=== PATIENT | female | born 1935 | race Caucasian/White ===

== ENCOUNTER 2018-04-03 15:18 | Inpatient (IN) ==
[2018-04-03] MEDS ORDERED: DOCUSATE 100 MG CAPSULE PO PRN (16:12)
[2018-04-03] MEDS ORDERED: LIDOCAINE W/ SODIUM BICARB 0.5 ML SYR SUBD PRN (16:12)
[2018-04-03] MEDS ORDERED: ACETAMINOPHEN 325 MG TABLET PO PRN (16:12)
[2018-04-03] MEDS ORDERED: ONDANSETRON 4 MG/2 ML VIAL IVP PRN (16:12)
[2018-04-03] MEDS ORDERED: CALCIUM CARBONATE 500 MG (TUMS) CHEWABLE TABLET PO PRN (16:12)
[2018-04-03] MEDS ORDERED: HYDROcodone/IBUPROFEN 7.5 MG/200 MG TABLET PO PRN (16:12)
[2018-04-03] MEDS ORDERED: LIDOCAINE HCL 2 % 10 ML JELLY URO-JECT TOPICAL PRN (16:12)
[2018-04-03] MEDS ORDERED: Sodium Chloride 0.9% 1,000 ML PRIMARY IV SCH (16:15)
[2018-04-03 16:58] LABS: BASOPHILS # (AUTO) 0 10*3/UL; BASOPHILS % (AUTO) 0 % (0-1); EOSINOPHILS # (AUTO) 0.01 10*3/UL; EOSINOPHILS % (AUTO) 0.2 % (0-8); Hematocrit [HCT] 24.5 % (37.0-47.0); Hemoglobin [HGB] 8.5 g/dL (12.0-16.0); MEAN CORPUSCULAR HGB CONC 34.7 g/dL (33-37); MEAN PLATELET VOLUME 10.3 FL (7.4-12.2); MONOCYTES # (AUTO) 0.25 10*3/UL (0.3-0.8); MONOCYTES % (AUTO) 5.5 % (5-15); NEUTROPHILS # (AUTO) 3.68 10*3/UL; NEUTROPHILS % (AUTO) 80.7 % (50-80)
[2018-04-03 17:08] LABS: BLOOD UREA NITROGEN 21 mg/dL (7-22); SERUM ALBUMIN 3.9 g/dL (3.5-4.8)
--- NOTE | 2018-04-03 17:08 | PDOC ---
HPI - History of Present Illness History of Present Illness: This very nice 82-year-old female who fell at home and had a left hip fracture was seen in the ER in [place] and transferred here accepted the by Dr. Sd Hall for hip surgery I did speak to Dr. Hall and the family and surgery will be done on Sunday. Patient is pretty comfortable at present time and not having any complaints. She has a history of CLL that is been known and they want no treatment for it I spoke to the granddaughter this is a decision was made by the patient 2 years ago also takes Lopressor and omeprazole which I'm going to hold Past Medical History Medical History: CLL, atrial fibrillation rate controlled not on anticoagulation as per patient's wishes and choice Tobacco Use: Never Smoker In the Past 12 Months, Have Used or Abuse Any of the Following Substance: None Medication / Allergies Allergies/Adverse Reactions: Allergies 3 Allergy/AdvReac Type Severity Reaction Status Date / Time No Known Allergies Allergy Verified 04/03/18 16:07 Review of Systems - Review of Systems All Systems: Reviewed & No Additional Complaints Except as Stated - Respiratory Respiratory: DENIES: Negative System Review, Cough, Sputum, Dyspnea At Rest, Dyspnea with Exertion, Pleuritic Pain, Hemoptysis, Wheezing, Other, See HPI - Cardiovascular Cardiovascular: DENIES: Negative System Review, Chest Pain, Edema, Syncope, Palpitations, Orthopnea, Paroxysmal Nocturnal Dyspnea, Other, See HPI - Gastrointestinal Gastrointestinal / Abdominal: DENIES: Negative System Review, Nausea, Vomiting, Diarrhea, Constipation, Abdominal Pain, Bloody Stool, Poor Appetite, Heartburn, Regurgitation, Bloating, Lactose Intolerance, Melena, Bright Red Blood per Rectum, Other, See HPI - Neurological Neurologic: DENIES: Negative System Review, Headache, Numbness/Paresthesia, Tremors, Weakness, Seizures, Head Trauma, LOC, Dizziness, Confusion, Memory Loss , Difficulty Walking, Incoordination, Other, See HPI - Psychiatric Psychiatric: DENIES: Negative System Review, Anxiety, Depressed, Anhedonia, Hopelessness, Hospitalization, Panic, Sadness, Suicidality, Tearfullness, Other , See HPI Exam - Vitals Vital Signs: Vital Signs Temperature 97.9 F Temperature Source Temporal Artery Scan Pulse Rate [Pulse Oximeter] 70 Respiratory Rate 18 Blood Pressure [Right Arm] 182/97 Pulse Ox 98 Height 5 ft 3 in Weight 100 lb - General General Appearance: No Acute Distress, Cooperative - Head Head Exam: Normal Inspection, Normocephalic, Atraumatic - Neck Neck Exam: Normal Inspection, Full ROM, No Tenderness, No Lymphadenopathy, No Thyromegaly, JVP is not Raised - Respiratory Respiratory Exam: POSITIVE: Clear to Auscultation - Bilaterally, Breathing Non Labored, Normal To Percussion, Normal to Percussion and Palpation - Cardiovascular Cardiovascular Exam: POSITIVE: RRR, No Murmur, No Clicks, No Gallops, No Rubs, PMI Non-Displaced - GI/Abdominal GI/Abdominal Exam: POSITIVE: Normal Bowel Sounds, Non Tender, Non Distended, Soft, No Masses, No Hepatomegaly, No Splenomegaly, No Organomegaly - Extremities Extremities Exam: POSITIVE: No Clubbing Present, No Edema Present, No Cyanosis Present Assessment and Plan - Patient Problems (1) Hip fracture, left Current Visit: Yes Status: Acute Comment: Dr. Hall on consult defer to him for surgery most likely on Sunday he states Code(s): S72.002A - Fracture of unspecified part of neck of left femur, initial encounter for closed fracture (2) Hypokalemia Current Visit: Yes Status: Acute Comment: Replace with IV fluids check magnesium level Code(s): E87.6 - Hypokalemia (3) Atrial fibrillation Current Visit: Yes Status: Acute Comment: Rate control patient not on anticoagulation as per her wishes Code(s): I48.91 - Unspecified atrial fibrillation (4) History of chronic lymphocytic leukemia Current Visit: Yes Status: Acute Comment: Long-standing diagnoses no treatment wanted by patient Code(s): Z85.6 - Personal history of leukemia
[2018-04-03 17:14] LABS: RBC MORPHOLOGY COMMENT SEE COMMENTS (NORM); WBC MORPHOLOGY COMMENT NORMAL MORPHOLOGY (NORM)
[2018-04-03 17:15] LABS: PLATELET MORPHOLOGY COMMENT SEE COMMENTS (NORM)
[2018-04-03] MEDS ORDERED: Magnesium Sulfate 2gm (Premix) 2 GM/50 ML BAG IV ONE (17:52)
[2018-04-03] MEDS: HEPARIN 5000 UNIT/1 ML SUBCUT SCH (20:07)
[2018-04-04] MEDS: HEPARIN 5000 UNIT/1 ML SUBCUT SCH ×3 (04:20→23:43)
--- NOTE | 2018-04-04 05:18 | PDOC(PROG) ---
Interval History: Patient is doing well and some pain now she got back from her CT scan has pain nausea vomiting I told her that she will be receiving blood she agrees because her hemoglobin is 7 Objective : Data - Labs CBC and BMP: 04/04/18 05:35 04/04/18 05:35 Objective : Exam - General General Appearance: Cooperative - Respiratory Respiratory Exam: Clear to Auscultation - Bilaterally, Breathing Non Labored, Normal To Percussion, Normal to Percussion and Palpation - Cardiovascular Cardiovascular Exam: RRR, No Murmur, No Clicks, No Gallops, No Rubs, PMI Non- Displaced - GI/Abdominal GI/Abdominal Exam: Normal Bowel Sounds, Non Tender, Non Distended, Soft, No Masses, No Hepatomegaly, No Splenomegaly, No Organomegaly Assessment and Plan - Patient Problems (1) Hip fracture, left Current Visit: Yes Status: Acute Comment: Defer to Dr. Sd Hall most likely will go to surgery tomorrow pain is controlled I will stop. Vicoprofen and start Percocet we will like to avoid the NSAIDs before surgery Code(s): S72.002A - Fracture of unspecified part of neck of left femur, initial encounter for closed fracture (2) Hypokalemia Current Visit: Yes Status: Acute Comment: This is being replaced with IV fluids Code(s): E87.6 - Hypokalemia (3) Atrial fibrillation Current Visit: Yes Status: Acute Comment: Stable rate controlled Code(s): I48.91 - Unspecified atrial fibrillation (4) History of chronic lymphocytic leukemia Current Visit: Yes Status: Acute Comment: Stable untreated Code(s): Z85.6 - Personal history of leukemia (5) Hypomagnesemia Current Visit: Yes Status: Acute Comment: Replaced with 2 g repeat labs Code(s): E83.42 - Hypomagnesemia
[2018-04-04 05:47] LABS: Hematocrit [HCT] 21.1 % (37.0-47.0); Hemoglobin [HGB] 7.1 g/dL (12.0-16.0); MEAN CORPUSCULAR HEMOGLOBIN 33.5 PG (27-31); MEAN CORPUSCULAR HGB CONC 33.6 g/dL (33-37); MEAN CORPUSCULAR VOLUME 99.5 FL (81-99); MEAN PLATELET VOLUME 10.2 FL (7.4-12.2); RED BLOOD COUNT 2.12 10^6/uL (4.20-5.40)
[2018-04-04 05:54] LABS: BLOOD UREA NITROGEN 22 mg/dL (7-22); BUN/CREATININE RATIO 24.44 (6-20); SERUM ALBUMIN 3.4 g/dL (3.5-4.8)
[2018-04-04] MEDS ORDERED: Sodium Chloride 0.9% 500 ML PRIMARY IV ONE (06:54)
--- NOTE | 2018-04-04 07:36 | CONSULT ---
Consult Note - Consult Consult Date: 04/03/18 Reason for Consult: Orthopedic Consult Primary Care Provider: PRESTON MISHRA - History of Present Illness History of Present Illness: I was contacted by Dr. Samson in [place] about this patient who fractured her left hip around noon on Sunday. She slipped in the bathroom and fell. She sustained an intertrochanteric left hip fracture. She was transported to our facility for definitive care. The patient's granddaughter is the legal power of claims attorney. I have spoken with her. My plan is to fix the patient's hip on Sunday. I would like to get a CAT scan of her hip . I have clinic out of town schedule until noon on and then in [place] until 5:00 on . The patient's mental status is not great. I have spoken with her but are not sure she clearly understands everything that is going on. On exam the patient's left hip skin is intact. Very thin female. X-rays reveal a left intertrochanteric hip fracture. Impression: Left intertrochanteric hip fracture. Plan: Is to recommend fixing this on Sunday. We'll get a CAT scan on . Likely she will require some blood as well. She has a history of chronic lymphocytic anemia. Apparently she has lost about 3 pounds in the last month according to her granddaughter. I have discussed the risks at length with the granddaughter. These include but are not limited to infection, hardware failure, pain, blood clot, pulmonary embolism, wound healing problems, and even . She understands that if I do not fix the hip, that patient will not be able to get out of bed. She agrees to let me proceed on Sunday. Past Medical History Medical History: CLL, atrial fibrillation rate controlled not on anticoagulation as per patient's wishes and choice Tobacco Use: Never Smoker In the Past 12 Months, Have Used or Abuse Any of the Following Substance: None Medication / Allergies Allergies/Adverse Reactions: Allergies 3 Allergy/AdvReac Type Severity Reaction Status Date / Time No Known Allergies Allergy Verified 04/03/18 18:35 Exam - Vitals Vital Signs: Vital Signs Temperature 97.5 F Temperature Source Temporal Artery Scan Pulse Rate [Pulse Oximeter] 76 Pulse Rate [Apical] 76 Respiratory Rate 18 Blood Pressure [Right Arm] 118/75 Pulse Ox 94 Oxygen Delivery Method Room Air Height 5 ft 3 in Weight 100 lb Results - Labs CBC and BMP: 04/04/18 05:35 04/04/18 05:35
[2018-04-04] MEDS: MORPHINE SULFATE 2 MG/1 ML IVP PRN ×2 (07:49→19:17)
[2018-04-04] MEDS: METOPROLOL SUCCINATE 50 MG SR 24H TABLET PO SCH (08:50)
[2018-04-04] MEDS: HYDROcodone-APAP 7.5 MG-325 MG TABLET PO PRN ×2 (09:24→19:00)
--- NOTE | 2018-04-04 09:27 | DI ---
CT PELVIS SCAN WITHOUT IV CONTRAST, 04/04/2018 7:51 AM : Clinical History: Left hip fracture. Previous Exam: None at this facility. Scans are performed from just superior to the umbilicus to the proximal femurs without IV contrast. S agittal and coronal images are generated. Scans through the lower abdomen and pelvis show no masses or abnormal fluid collections. There is no adenopathy. The appendix is not identified with certainty but there is no inflammatory mass either in the cecum or in the right lower quadrant. The patient is status post hysterectomy and bilateral salp ingo-oophorectomy. There is a Campbell catheter in place but the bladder is still partially filled. The Campbell catheter either is clamped or may be occluded. There is considerable stool in the rectal ampull a and this patient may be developing a fecal impaction. There is severe osteoporosis. There is a grade 1 spondylolisthesis at L5-S1 with bilateral pars defec ts. Severe disc space narrowing is present at L3-4 through L5-S1. The bony pelvis including the sacru m and coccyx are intact. The right hip is normal. There is a comminuted intertrochanteric fracture of the left hip and the distal fracture fragment is displaced anteriorly and superiorly. Hemorrhage has developed in the gluteus yue, minimus, and medius muscles. READIN. Comminuted intertrochanteric fracture of the left hip with anterior and superior displacement of the distal fracture fragment. There has been hemorrhage into the left gluteus yue, medius, and mi nimus muscles. 2. The right hip and pelvis and sacrum are intact but there is severe osteoporosis. 3. The patient may be developing a fecal impaction. There is a Campbell catheter in the bladder but the bladder is partially filled and a catheter either is occluded or may have been clamped prior to this exam. 3D RENDERING OF CT SCANS OF THE LEFT HIP JOINT, 04/04/2018 7:00 AM: Clinical History: See above. Prior or Related Exam: None. The original raw data from the CT scans of this extremity are ported to the off-line [employer] work[employer]ati on for 3D rendering of the bony structures. The 3-D rendering confirms the comminuted intertrochanteric fracture of the left hip and the position of the distal femoral fracture fragment being displaced anteriorly and superiorly. This patient prob ably has significant levoscoliosis of the lumbar spine and also has extensive degenerative disc disea se from L3-4 through L5-S1. Reading: The comminuted intertrochanteric fracture of the left hip and the severe arthritic disease of the lum bar spine are confirmed on the 3-D rendered images.
--- NOTE | 2018-04-04 16:58 | ORTHO.PROG ---
Last Taken Vital Signs: Vital Signs - Last Taken Temperature 98.6 F 04/04/18 16:06 Pulse Rate 71 04/04/18 16:06 Respiratory Rate 16 04/04/18 16:06 Blood Pressure 192/96 04/04/18 16:06 Pulse Ox 98 04/04/18 16:06 Subjective: Spoke with the patient and her daughter this afternoon. Patient was lying in bed and seemed much more alert today. Objective: Vital signs show elevated blood pressure. Patient is afebrile. Left lower extremity is in Doe's traction. Lateral skin intact. CAT scan reveals a base of the neck/intertrochanteric hip fracture. Assessment: Impression: Intertrochanteric hip fracture left. Plan: Plan: Is to IM hip screw versus dynamic hip screw scheduled for tomorrow. Patient's hemoglobin and hematocrit was 7 and 21 today. She will be given 2 units of blood and recheck her CBC in the morning. I discussed the risks benefits and alternatives to surgery with both patient and her granddaughter today. Granddaughter has legal power of senior trial attorney who will sign the consent form. These risks include but are not limited to infection, hardware failure, hardware cutting out of bone, blood clot, respiratory difficulty, bleeding, need for transfusion, pain, prolonged rehabilitation, and even . They agree to let me proceed.
[2018-04-04] MEDS ORDERED: CloNIDine Tab 0.1 MG TABLET PO ONE (17:56)
[2018-04-04 18:56] LABS: Hematocrit [HCT] 29.1 % (37.0-47.0); Hemoglobin [HGB] 9.9 g/dL (12.0-16.0); MEAN CORPUSCULAR HEMOGLOBIN 32.5 PG (27-31); MEAN CORPUSCULAR VOLUME 95.4 FL (81-99); MEAN PLATELET VOLUME 9.5 FL (7.4-12.2); RED BLOOD COUNT 3.05 10^6/uL (4.20-5.40)
[2018-04-04] MEDS: ENALAPRILAT DIHYDRATE 1.25 MG/1 ML VIAL IVP SCH (19:21)
[2018-04-05] MEDS: ENALAPRILAT DIHYDRATE 1.25 MG/1 ML VIAL IVP SCH ×4 (01:22→17:54)
[2018-04-05 04:56] LABS: Hematocrit [HCT] 28.9 % (37.0-47.0); Hemoglobin [HGB] 9.9 g/dL (12.0-16.0); MEAN CORPUSCULAR HEMOGLOBIN 32.5 PG (27-31); MEAN CORPUSCULAR HGB CONC 34.3 g/dL (33-37); MEAN CORPUSCULAR VOLUME 94.8 FL (81-99); RED BLOOD COUNT 3.05 10^6/uL (4.20-5.40)
[2018-04-05 05:19] LABS: BLOOD UREA NITROGEN 16 mg/dL (7-22); BUN/CREATININE RATIO 26.66 (6-20); SERUM ALBUMIN 3.4 g/dL (3.5-4.8)
[2018-04-05] MEDS ORDERED: Lactated Ringers 1,000 ML PRIMARY IV ONE (06:34)
[2018-04-05] MEDS: HYDROcodone-APAP 7.5 MG-325 MG TABLET PO PRN (06:59)
[2018-04-05] MEDS: HEPARIN 5000 UNIT/1 ML SUBCUT SCH ×2 (07:00→17:07)
[2018-04-05] MEDS: METOPROLOL SUCCINATE 50 MG SR 24H TABLET PO SCH (08:51)
[2018-04-05] MEDS ORDERED: fentaNYL Inj 250 MCG/5 ML VIAL IVP ONE (09:19)
--- NOTE | 2018-04-05 10:06 | PDOC(PROG) ---
Interval History: Patient is doing well her pain is controlled awake and alert no chest pain nausea vomiting Objective : Data - Labs CBC and BMP: 04/05/18 04:10 04/05/18 04:10 Objective : Exam - Respiratory Respiratory Exam: Clear to Auscultation - Bilaterally, Breathing Non Labored, Normal To Percussion, Normal to Percussion and Palpation - Cardiovascular Cardiovascular Exam: RRR, No Murmur, No Clicks, No Gallops, No Rubs, PMI Non- Displaced - GI/Abdominal GI/Abdominal Exam: Normal Bowel Sounds, Non Tender, Non Distended, Soft, No Masses, No Hepatomegaly, No Splenomegaly, No Organomegaly - Extremities Extremities Exam: No Clubbing Present, No Edema Present, No Cyanosis Present Assessment and Plan - Patient Problems (1) Hip fracture, left Current Visit: Yes Status: Acute Code(s): S72.002A - Fracture of unspecified part of neck of left femur, initial encounter for closed fracture (2) Hypokalemia Current Visit: Yes Status: Acute Code(s): E87.6 - Hypokalemia (3) Atrial fibrillation Current Visit: Yes Status: Acute Code(s): I48.91 - Unspecified atrial fibrillation (4) History of chronic lymphocytic leukemia Current Visit: Yes Status: Acute Code(s): Z85.6 - Personal history of leukemia (5) Hypomagnesemia Current Visit: Yes Status: Acute Code(s): E83.42 - Hypomagnesemia - Assessment / Plan Additional Assessment/Plan Details: #1 uncontrolled hypertension we have started overnight Vasotec IV also added Norvasc 10 mg patient's blood pressure is much improved latest blood pressure is 150/82 with a heart rate of 77 and respiratory rate of 18 at present time she will also continue to take her beta rudy she is optimized as best as possible to proceed with surgery I did talk to the family if her atrial fibrillation ask up later some also some patients might develop myocardial infarction we will let the address that after surgery but at present time with her broken hip proofread don't fix it is for sure and most likely not compatible with her life and her pain level would be the high they understand and agree #2 A. fib patient on beta rudy not on anticoagulation just per patient's wishes and choice #3 history of CLL untreated as per patient's wishes and choice #4 anemia hemoglobin of 7 patient is status post transfusion 2 units of packed red blood cells hemoglobin now 9.9
[2018-04-05] MEDS ORDERED: ceFAZolin 1 GM VIAL ONE (12:56)
[2018-04-05] MEDS ORDERED: Sodium Chloride 0.9% 100 ML IV ONE ×2 (12:56→13:18)
[2018-04-05] MEDS ORDERED: KETAMINE 100 MG/1 ML - 5 ML ONE (13:10)
[2018-04-05] MEDS ORDERED: REMIFENTANIL 1 MG/1 ML IV ONE (13:11)
[2018-04-05] MEDS ORDERED: MIDAZOLAM 5 MG/1 ML ONE (13:12)
[2018-04-05] MEDS ORDERED: ROCURONIUM 10 MG/1 ML - 5 ML VIAL IVP ONE (13:14)
[2018-04-05] MEDS ORDERED: ceFAZolin Inj 1 GM in Sodium Chloride 0.9% 100 ML IV ONE (13:14)
[2018-04-05] MEDS ORDERED: Propofol 1,000 MG/100 ML VIAL IV ONE (13:24)
[2018-04-05] MEDS ORDERED: PHENYLEPHRINE 10,000 MCG/1 ML VIAL ONE (14:09)
[2018-04-05] MEDS ORDERED: Sodium Chloride 0.9% 250 ML ONE (14:23)
[2018-04-05] MEDS ORDERED: HYDROmorphone 2 MG/1 ML IVP PRN (15:03)
[2018-04-05] MEDS ORDERED: ATROPINE SULFATE 0.4 MG/1 ML VIAL IVP PRN (15:03)
[2018-04-05] MEDS ORDERED: ONDANSETRON 4 MG/2 ML VIAL IVP PRN ×2 (15:03→16:46)
[2018-04-05] MEDS ORDERED: LIDOCAINE W/ SODIUM BICARB 0.5 ML SYR SUBD PRN (15:03)
--- NOTE | 2018-04-05 15:06 | CRNA.PROGR ---
Anesthesia Time - Procedure/Recovery Time Start Date: 04/05/18 End Date: 04/05/18 Anesthesia : Time In: 13:47 Anesthesia : Time Out: 16:17 Anesthesia : Total Time: 150 - Total Anesthesia Time Total Anesthesia Time (minutes): 150 - Other Weight: 45.359 kg Height: 5 ft 3 in Body Mass Index (BMI): 17.6 Physical Status: P4 (dementia, bed bound, htn, clc, breast cancer etc.....) Anesthesia Type: General Anesthesia : ET
--- NOTE | 2018-04-05 15:06 | CRNA.PROGR ---
Anesthesia Recovery Phase I - Post Anesthesia Evaluation Patient's Condition on Arrival in Phase I: Stable Patient's Condition on Arrival in Phase II: Stable Pain Level: 2
--- NOTE | 2018-04-05 15:07 | CRNA.PROGR ---
Post Anesthesia Phase II - Post Anesthesia Phase II Patient Stable and Discharged To: Med/Surg Care Assumed By Surgeon: Sd Hall MD Temperature: 97.2 F Pulse Rate: 70 Respiratory Rate: 112 Blood Pressure: 172/91 Pulse Ox: 95 Total Geneva Score at Discharge: 9 Post Anesthesia Discharge Criteria Met: Yes
[2018-04-05] MEDS ORDERED: Lactated Ringers 1,000 ML PRIMARY IV SCH (15:15)
[2018-04-05] MEDS ORDERED: BUPivacaine Liposome/PF (Exparel) Inj 20ml vial INFIL ONE (15:31)
--- NOTE | 2018-04-05 16:08 | ORTHO.OP ---
Surgery Date: 04/05/18 Preoperative Diagnosis: Left intertrochanteric hip fracture Postoperative Diagnosis: Same Procedure: Fixation left intertrochanteric hip fracture using a Darek compression hip screw Surgeon: Sd Hall MD Veterinary Technician Instructor: [employer] Anesthesia Provider: Annabelle Phillip CRNA Anesthesia Type: General Estimated Blood Loss (mL): 170 Fluids: 800 mL crystalloid Complications: None. Urine output 150 mL Operative Summary: Extubated and taken to recovery room in stable condition.
[2018-04-05] MEDS ORDERED: D5-1/2NS + 20mEq KCL 1,000 ML PRIMARY IV SCH (16:46)
[2018-04-05] MEDS: MORPHINE SULFATE 2 MG/1 ML IVP PRN (17:06)
--- NOTE | 2018-04-05 17:52 | DI ---
AP PELVIS and LEFT HIP, 04/05/2018 4:46 PM: Clinical History: Left hip fracture. Postop ORIF. Previous Exam: None at this facility. There is no soft tissue abnormality. The bony structures of the pelvis are normal. 2 views of the lef t hip show a sliding threaded screw transfixed with a lateral buttress plate. Alignment and position are anatomic. There is osteoporosis. Readin. Status post ORIF of an intertrochanteric fracture with anatomic alignment and position. 2. The AP pelvis view is unremarkable. There is osteoporosis.
[2018-04-05] MEDS: ceFAZolin Inj 2gm (Premix) 2 GM/50 ML BAG IV SCH (19:56)
[2018-04-05] MEDS: LOSARTAN/HYDROCHLOROTHIAZIDE 50 MG/12.5 MG TABLET PO SCH (20:01)
[2018-04-05] MEDS: Sucralfate Tab 1 GM TAB PO SCH (20:02)
[2018-04-05] MEDS: DOCUSATE 100 MG CAPSULE PO SCH (20:02)
[2018-04-05] MEDS: HYDROcodone-APAP 5 MG -325 MG TABLET PO PRN (20:02)
[2018-04-05] MEDS: OMEPRAZOLE 40 MG CAPSULE PO SCH (20:02)
[2018-04-05] MEDS ORDERED: LOSARTAN/HYDROCHLOROTHIAZIDE 50 MG/12.5 MG TABLET PO SCH (21:00)
[2018-04-05 21:36] LABS: Hematocrit [HCT] 29.8 % (37.0-47.0); Hemoglobin [HGB] 10.2 g/dL (12.0-16.0); MEAN CORPUSCULAR HEMOGLOBIN 32.4 PG (27-31); MEAN CORPUSCULAR HGB CONC 34.2 g/dL (33-37); MEAN CORPUSCULAR VOLUME 94.6 FL (81-99); MEAN PLATELET VOLUME 10.4 FL (7.4-12.2); RED BLOOD COUNT 3.15 10^6/uL (4.20-5.40)
[2018-04-06] MEDS: ENALAPRILAT DIHYDRATE 1.25 MG/1 ML VIAL IVP SCH ×2 (00:14→05:52)
[2018-04-06] MEDS: MORPHINE SULFATE 2 MG/1 ML IVP PRN (01:16)
[2018-04-06] MEDS: ceFAZolin Inj 2gm (Premix) 2 GM/50 ML BAG IV SCH (04:12)
[2018-04-06 05:35] LABS: BASOPHILS # (AUTO) 0.01 10*3/UL; BASOPHILS % (AUTO) 0.2 % (0-1); EOSINOPHILS # (AUTO) 0 10*3/UL; EOSINOPHILS % (AUTO) 0 % (0-8); Hematocrit [HCT] 28.8 % (37.0-47.0); Hemoglobin [HGB] 9.9 g/dL (12.0-16.0); LYMPHOCYTES # (AUTO) 0.47 10*3/uL; MEAN CORPUSCULAR HEMOGLOBIN 32.5 PG (27-31); MEAN CORPUSCULAR HGB CONC 34.4 g/dL (33-37); MEAN CORPUSCULAR VOLUME 94.4 FL (81-99); MEAN PLATELET VOLUME 10.8 FL (7.4-12.2); MONOCYTES # (AUTO) 0.31 10*3/UL (0.3-0.8); MONOCYTES % (AUTO) 6.8 % (5-15); NEUTROPHILS # (AUTO) 3.75 10*3/UL; NEUTROPHILS % (AUTO) 82.3 % (50-80); RED BLOOD COUNT 3.05 10^6/uL (4.20-5.40)
[2018-04-06 05:45] LABS: BLOOD UREA NITROGEN 15 mg/dL (7-22); BUN/CREATININE RATIO 18.75 (6-20)
[2018-04-06] MEDS ORDERED: ENALAPRILAT DIHYDRATE 1.25 MG/1 ML VIAL ONE (05:52)
[2018-04-06 06:14] LABS: PLATELET MORPHOLOGY COMMENT NORMAL MORPHOLOGY (NORM); RBC MORPHOLOGY COMMENT NORMAL MORPHOLOGY (NORM); WBC MORPHOLOGY COMMENT NORMAL MORPHOLOGY (NORM)
[2018-04-06] MEDS: HYDROcodone-APAP 5 MG -325 MG TABLET PO PRN ×4 (07:49→23:15)
--- NOTE | 2018-04-06 09:02 | CRNA.PROGR ---
Anesthesia Note - Progress Notes Anesthesia Progress Note: Sitting up in bed watching tv with her grand daugter at bedside. Discussed with both of them her anesthetic course. They have no questions or concerns regarding her anesthetic. VSS, AAO, Vital Signs (Last 8 hours) Temp Pulse Pulse Resp BP Pulse Ox 04/06/18 08:32 99.5 F 110 H 20 144/85 96 04/06/18 06:51 84 20 04/06/18 05:00 98.0 F 94 16 176/111 Laboratory Results 04/05/18 04/06/18 04/06/18 Range/Units 21:32 04:50 04:50 WBC 4.37 L 4.56 L (4.8-10.8) 10^3/uL RBC 3.15 L 3.05 L (4.20-5.40) 10^6/uL Hgb 10.2 L 9.9 L (12.0-16.0) g/dL Hct 29.8 L 28.8 L (37.0-47.0) % MCV 94.6 94.4 (81-99) FL MCH 32.4 H 32.5 H (27-31) PG MCHC 34.2 34.4 (33-37) g/dL RDW Std Deviation 49.2 49.2 (39-50) fL RDW Coeff of Hannah 15.0 H 14.9 H (11.5-14.5) % Plt Count 126 L 125 L (140-350) 10*3/uL MPV 10.4 10.8 (7.4-12.2) FL Immature Gran % (Auto) 0.4 (0-5) % Neut % (Auto) 82.3 H (50-80) % Lymph % (Auto) 10.3 (10-50) % Putnam % (Auto) 6.8 (5-15) % Eos % (Auto) 0 (0-8) % Baso % (Auto) 0.2 (0-1) % Immature Gran # (Auto) 0.02 10*3/UL Neut # (Auto) 3.75 10*3/UL Lymph # (Auto) 0.47 10*3/uL Putnam # (Auto) 0.31 (0.3-0.8) 10*3/UL Eos # (Auto) 0 10*3/UL Baso # (Auto) 0.01 10*3/UL WBC Morphology Comment Normal morphology (NORM) Plt Morphology Comment Normal morphology (NORM) RBC Morph Comment Normal morphology (NORM) Sodium 137 (135-145) meq/L Potassium 3.3 L (3.8-5.2) meq/L Chloride 107 (98-112) meq/L Carbon Dioxide 23 (23-33) meq/L Anion Gap 7 (5-20) BUN 15 (7-22) mg/dL Creatinine 0.8 (0.50-1.20) mg/dL BUN/Creatinine Ratio 18.75 (6-20) Glucose 147 H (78-110) mg/dL Calculated Osmolality 287.0 (267-292) mOsm/kg Calcium 8.4 L (8.7-10.7) mg/dL
[2018-04-06] MEDS: DOCUSATE 100 MG CAPSULE PO SCH ×2 (09:33→20:36)
[2018-04-06] MEDS: METOPROLOL SUCCINATE 50 MG SR 24H TABLET PO SCH (09:34)
[2018-04-06] MEDS: OMEPRAZOLE 40 MG CAPSULE PO SCH ×2 (09:34→20:36)
[2018-04-06] MEDS: Sucralfate Tab 1 GM TAB PO SCH ×2 (09:34→20:36)
--- NOTE | 2018-04-06 10:18 | PDOC(PROG) ---
Date of Service: 04/06/18 Time of Service: 10:20 Interval History: Subjective Patient was laying in bed does not appear in distress. Doesn't say much though. When directly asked about pain she denied pain. Denied shortness of breath and denied nausea. The granddaughter said the patient does have a history of dementia, history of leukemia on no treatment and she described it as CLL, she has history of heart rhythm issues but no heart attacks before. Apparently she fell a week before and that resulted in rib fractures on the right she was on pain medication for 2 days she was using a walker and then she fell again and this time she broke her hip. Objective : Data - Labs CBC and BMP: 04/06/18 04:50 04/06/18 04:50 Objective : Exam - General General Appearance: No Acute Distress, Cooperative - Head Head Exam: Normal Inspection - Eye Eye Exam: Normal Appearance - ENT ENT Exam: Normal Exam - Neck Neck Exam: Normal Inspection - Respiratory Respiratory Exam: Clear to Auscultation - Bilaterally - Cardiovascular Cardiovascular Exam: RRR - GI/Abdominal GI/Abdominal Exam: Normal Bowel Sounds, Non Tender, Non Distended, Soft, No Organomegaly - Rectal Rectal Exam: Deferred - External Exam: Deferred - Extremities Extremities Exam: Normal Inspection - Back Back Exam: Normal Inspection - Neurological Additional Neurological Exam Details: Awake, somewhat cooperative. Denying complaint. Seems weak though. No focal findings. She couldn't tell me the day or the month. She knew her birthday though. She couldn't tell me how did she end up here in the hospital. - Psychiatric Psychiatric Exam: Flat Affect - Integumentary Integumentary Exam: Normal Color Assessment and Plan - Patient Problems (1) Hip fracture, left Current Visit: Yes Status: Acute Comment: She status post surgery will continue PT and OT. Will speak later on with Dr. Hall about anticoagulation. Code(s): S72.002A - Fracture of unspecified part of neck of left femur, initial encounter for closed fracture (2) Hypokalemia Current Visit: Yes Status: Acute Comment: We'll replace her potassium Code(s): E87.6 - Hypokalemia (3) Atrial fibrillation Current Visit: Yes Status: Acute Comment: The EKG that she had when she came in showed sinus rhythm with premature beats. She is on beta rudy continue Code(s): I48.91 - Unspecified atrial fibrillation (4) History of chronic lymphocytic leukemia Current Visit: Yes Status: Acute Comment: Her white count is not elevated. Not sure about the accuracy of this. She did have anemia when she came in she got 2 units of blood. Code(s): Z85.6 - Personal history of leukemia (5) Hypomagnesemia Current Visit: Yes Status: Acute Comment: This is resolved Code(s): E83.42 - Hypomagnesemia
[2018-04-06] MEDS: Potassium Chloride Tab 10 MEQ TAB PO SCH ×2 (11:11→20:36)
--- NOTE | 2018-04-06 13:22 | ORTHO.PROG ---
Last Taken Vital Signs: Vital Signs - Last Taken Temperature 98.5 F 04/06/18 13:00 Pulse Rate 97 04/06/18 13:00 Respiratory Rate 16 04/06/18 13:00 Blood Pressure 154/95 04/06/18 13:00 Pulse Ox 98 04/06/18 13:00 Subjective: Patient sitting up in chair. He has been sleeping much of the day. Has only taken a few pain pills. Objective: Vital signs show blood pressure 154/95. Afebrile. Hemoglobin and hematocrit 9 and 28.8. Hip incision clean and dry. Thigh is supple. Trace surgery show a well-positioned dynamic hip screw. Assessment: Impression: Stable postop day 1 from fixation of left hip fracture. Plan: Plan is to continue to get her up in a chair and partially bear weight with a walker. We'll talk with Dr. Cheng about DVT prophylaxis. Possibly some Lovenox. Will also make sure he is aware of her hypertension.
[2018-04-06] MEDS: ENOXAPARIN SODIUM 30 MG/0.3 ML SYRINGE SUBCUT SCH (15:06)
[2018-04-06] MEDS: LOSARTAN/HYDROCHLOROTHIAZIDE 50 MG/12.5 MG TABLET PO SCH (20:36)
[2018-04-07 06:02] LABS: BASOPHILS # (AUTO) 0 10*3/UL; BASOPHILS % (AUTO) 0 % (0-1); EOSINOPHILS # (AUTO) 0.01 10*3/UL; EOSINOPHILS % (AUTO) 0.2 % (0-8); Hemoglobin [HGB] 9.5 g/dL (12.0-16.0); LYMPHOCYTES # (AUTO) 0.59 10*3/uL; MEAN CORPUSCULAR HEMOGLOBIN 32.4 PG (27-31); MEAN CORPUSCULAR HGB CONC 33.9 g/dL (33-37); MEAN CORPUSCULAR VOLUME 95.6 FL (81-99); MEAN PLATELET VOLUME 10.6 FL (7.4-12.2); MONOCYTES # (AUTO) 0.37 10*3/UL (0.3-0.8); MONOCYTES % (AUTO) 8.7 % (5-15); NEUTROPHILS # (AUTO) 3.25 10*3/UL; RED BLOOD COUNT 2.93 10^6/uL (4.20-5.40)
[2018-04-07 06:08] LABS: BLOOD UREA NITROGEN 17 mg/dL (7-22); BUN/CREATININE RATIO 21.25 (6-20)
[2018-04-07 06:54] LABS: PLATELET MORPHOLOGY COMMENT NORMAL MORPHOLOGY (NORM); RBC MORPHOLOGY COMMENT NORMAL MORPHOLOGY (NORM); WBC MORPHOLOGY COMMENT NORMAL MORPHOLOGY (NORM)
--- NOTE | 2018-04-07 08:26 | PDOC(PROG) ---
Date of Service: 04/07/18 Time of Service: 08:20 Interval History: Subjective Patient is more alert today compared to yesterday, however she still doesn't follow all commands. At times it is hard to understand her. She did tell me though her name. She is denying complaints. Objective : Data - Labs CBC and BMP: 04/07/18 04:35 04/07/18 04:35 Objective : Exam - General General Appearance: No Acute Distress, Thin - Head Head Exam: Normal Inspection - Eye Eye Exam: Normal Appearance - ENT ENT Exam: Normal Exam - Neck Neck Exam: Normal Inspection - Respiratory Respiratory Exam: Clear to Auscultation - Bilaterally - Cardiovascular Cardiovascular Exam: Irregular Rhythm, Tachycardia - GI/Abdominal GI/Abdominal Exam: Normal Bowel Sounds, Non Tender, Non Distended, Soft, No Organomegaly - Rectal Rectal Exam: Deferred - External Exam: Deferred - Extremities Extremities Exam: Normal Inspection - Neurological Neurological Exam: Alert, CN II-XII Intact, No Facial Droop Additional Neurological Exam Details: She is moving her limbs spontaneously. - Psychiatric Psychiatric Exam: Flat Affect Assessment and Plan - Patient Problems (1) Hip fracture, left Current Visit: Yes Status: Acute Comment: She is status post surgery. Continue PT and OT. For DVT prophylaxis we started her on Lovenox. The nurses have a concern about her swallowing so we 'll order a swallow evaluation for her. Code(s): S72.002A - Fracture of unspecified part of neck of left femur, initial encounter for closed fracture (2) Hypokalemia Current Visit: Yes Status: Acute Comment: Potassium is lower will give her IV potassium in addition to oral potassium. recheck tomorrow. Code(s): E87.6 - Hypokalemia (3) Atrial fibrillation Current Visit: Yes Status: Acute Comment: Her rate clinically seem to be fast today well give her metoprolol and potassium replacement and we'll do an EKG. Code(s): I48.91 - Unspecified atrial fibrillation (4) History of chronic lymphocytic leukemia Current Visit: Yes Status: Acute Comment: Hemoglobin is stable Code(s): Z85.6 - Personal history of leukemia (5) Hypomagnesemia Current Visit: Yes Status: Acute Comment: This is replaced with recheck it today Code(s): E83.42 - Hypomagnesemia
[2018-04-07] MEDS: ENOXAPARIN SODIUM 30 MG/0.3 ML SYRINGE SUBCUT SCH (08:33)
[2018-04-07] MEDS: Sucralfate Tab 1 GM TAB PO SCH ×2 (08:34→20:46)
[2018-04-07] MEDS ORDERED: Sodium Chloride 0.9% 250 ML ONE (08:34)
[2018-04-07] MEDS: OMEPRAZOLE 40 MG CAPSULE PO SCH ×2 (08:34→20:46)
[2018-04-07] MEDS: DOCUSATE 100 MG CAPSULE PO SCH ×2 (08:34→20:46)
[2018-04-07] MEDS: HYDROcodone-APAP 5 MG -325 MG TABLET PO PRN ×3 (08:34→20:46)
[2018-04-07] MEDS: METOPROLOL SUCCINATE 50 MG SR 24H TABLET PO SCH (08:35)
--- NOTE | 2018-04-07 08:54 | ORTHO.PROG ---
Last Taken Vital Signs: Vital Signs - Last Taken Temperature 98.2 F 04/07/18 06:55 Pulse Rate 97 04/07/18 06:55 Respiratory Rate 17 04/07/18 06:55 Blood Pressure 145/88 04/07/18 06:55 Pulse Ox 97 04/07/18 06:55 Subjective: Patient is sitting up in bed. Not real conversant. she is in atrial fibrillation with rapid ventricular rate. Objective: Vital signs stable patient afebrile. Left hip incision is clean and dry. Will switch it out to a regular dressing today. Thigh is supple. Hemoglobin and hematocrit are stable. Assessment: Impression: Doing fairly well postop day 2 from left hip fracture fixation. Patient is in Ritchie crocker. Plan: Plan: Is to get her up in a chair. Ritchie crocker is being treated by Dr. Cheng. She is on Lovenox for DVT prophylaxis.
[2018-04-07] MEDS ORDERED: Potassium Chloride Tab 10 MEQ TAB PO SCH (09:00)
--- NOTE | 2018-04-07 09:06 | EKG ---
[address] [address] Measurements Intervals [place] Rate: 153 P: VA: 0 QRS: 38 QRSD: 97 T: 201 QT: 270 QTc: 356 Interpretive Statements ATRIAL FIBRILLATION WITH RAPID VENTRICULAR RESPONSE ANTEROSEPTAL MYOCARDIAL INFARCTION , PROBABLY OLD MARKED ST DEPRESSION, CONSIDER SUBENDOCARDIAL INJURY No previous ECG available for comparison Electronically Signed On 04-07-18 10:48:54 MDT by Calvin Paulson [id number]
[2018-04-07] MEDS: Potassium Chloride 20mEq Packet PO SCH ×2 (10:26→20:45)
[2018-04-07] MEDS ORDERED: Metoprolol TARTRATE Tab 25 MG TAB PO ONE (13:13)
[2018-04-07] MEDS: LOSARTAN/HYDROCHLOROTHIAZIDE 50 MG/12.5 MG TABLET PO SCH (20:45)
[2018-04-08] MEDS: MAGNESIUM OXIDE 400 MG TABLET PO SCH (06:38)
[2018-04-08 06:59] LABS: BLOOD UREA NITROGEN 21 mg/dL (7-22)
--- NOTE | 2018-04-08 07:41 | PT.PROG ---
Progress Note Progress Note: S: Pt.'s grand daughter present in the room during treatment today.States she is still pretty groggy from the medicine. Discussed baseline with her. Granddaughter would like to get her strong enough to do stand pivot transfers at home. O: Treatment consisted of functional activities: bed mobility and transfers to chair with use of max assist x 2. Pt. was placed in chair with instructions to staff to leave up till after lunch. A: Pt. does require max assist for transfers. She is alert but does not verbalize well. P: Continue per POC to increase strength and activity tolerance. Alyse Tamez, POTLINE MONITOR
--- NOTE | 2018-04-08 07:47 | PT.PROG ---
Progress Note Progress Note: S: Pt. states she is doing ok today. A little more alert this morning. O: Treatment consisted of functional activities: bed mobility and transfers from eob to chair. She was able to sit eob x a few seconds without assist. A: Pt. not able to weight bear much on either LE with transfer. She bears majority of weight on right LE, which is appropriate as L LE is PWB. She continues to benefit from skilled therapeutic intervention to address her weakness. P: Continue per POC to increase strength and activity tolerance. Alyse Tamez, SALES AMBASSADOR
[2018-04-08] MEDS: OMEPRAZOLE 40 MG CAPSULE PO SCH ×2 (08:26→20:35)
[2018-04-08] MEDS: Potassium Chloride 20mEq Packet PO SCH ×2 (08:27→20:35)
[2018-04-08] MEDS: METOPROLOL SUCCINATE 50 MG SR 24H TABLET PO SCH (08:27)
[2018-04-08] MEDS: Sucralfate Tab 1 GM TAB PO SCH ×2 (08:27→20:35)
[2018-04-08] MEDS: HYDROcodone-APAP 5 MG -325 MG TABLET PO PRN ×2 (08:27→19:38)
[2018-04-08] MEDS: DOCUSATE 100 MG CAPSULE PO SCH ×2 (08:28→20:36)
[2018-04-08] MEDS: ENOXAPARIN SODIUM 30 MG/0.3 ML SYRINGE SUBCUT SCH (08:28)
--- NOTE | 2018-04-08 10:06 | PTI REPORT ---
Thank you for the referral of Stephanie Reeder. She was seen on 04/05/18 for an inpatient evaluation status post hip fracture. SUBJECTIVE: The patient is an 82-year-old female. The patient was unable to give a lot of subjective due to being hard of hearing and recently getting out of surgery. The patient's granddaughter gave most of her subjective. The patient has advanced dementia. The patient lives with her granddaughter. Her granddaughter is a INVENTORY CONTROL/SHIPPING RECEIVING and they would be happy if her grandma could do a stand pivot transfer and they will continue her rehabilitation process from there. If they could get her to do a stand pivot transfer, they are planning on taking her to [place] for a swingbed status. The patient lives in [place] with family and has somebody at the house 29/01. The patient has a walker. Previously the patient was independent. This last week she had a fall and she started using the walker and her dementia got worse. Prior to falling, the patient did not use a walker and was able to perform all ADLs independently with min assist. PAST MEDICAL HISTORY: Past medical history can be found in the patient's medical record. OBJECTIVE FINDINGS: General observations: The patient was seen supine, upright in bed. The patient is hard of hearing. Nursing was present in room along with family members. ASSESSMENT: The patient is an 82-year-old female that is status post hip ORIF. The patient is to be partial weight-bearing, but we will double check that with the doctor. The patient would benefit from skilled therapy in order to improve overall functional mobility to return to prior level of function. The patient's prognosis for therapy is fair. Problem List: Decreased strength Decreased functional mobility Decreased endurance Short-Term Goals: To be met by discharge from inpatient: Patient will be independent with all transfers with walker. Patient will be able to ambulate 150 feet with walker. Patient will be able to tolerate 10 minutes of activity. Long-Term Goals: To be met following discharge from inpatient: Patient will be seen by outpatient physical therapy. TREATMENT PLAN: Patient will be seen B.I.D during the week and one time per day over the weekend as an inpatient for therapeutic exercise, neuromuscular reeducation, gait training, functional activity, and modalities as needed. INITIAL TREATMENT: Treatment today consisted of the initial evaluation. The patient was left in care of nursing. DENNIS
[2018-04-08] MEDS ORDERED: Metoprolol TARTRATE Tab 25 MG TAB PO ONE (10:07)
--- NOTE | 2018-04-08 10:34 | PDOC(PROG) ---
Date of Service: 04/08/18 Time of Service: 10:00 Interval History: Subjective Patient laying in bed doesn't appear in distress. Denied complaint. Objective : Data - Labs CBC and BMP: 04/07/18 04:35 04/08/18 06:20 Objective : Exam - General General Appearance: No Acute Distress, Thin Additional General Exam Details: Sleepy but arousable - Head Head Exam: Normal Inspection - Eye Eye Exam: Normal Appearance - ENT ENT Exam: Normal Exam - Neck Neck Exam: Normal Inspection - Respiratory Respiratory Exam: Clear to Auscultation - Bilaterally - Cardiovascular Cardiovascular Exam: Irregular Rhythm, Tachycardia - GI/Abdominal GI/Abdominal Exam: Normal Bowel Sounds, Non Tender, Non Distended, Soft, No Organomegaly - Rectal Rectal Exam: Deferred - External Exam: Deferred Exam: Deferred - Extremities Extremities Exam: Normal Inspection - Neurological Additional Neurological Exam Details: Sleepy but arousable. Doesn't follow all the commands. Spontaneously move her extremities - Psychiatric Psychiatric Exam: Flat Affect Assessment and Plan - Patient Problems (1) Hip fracture, left Current Visit: Yes Status: Acute Comment: She is status post surgery continue PT and OT. For DVT prophylaxis she is on Lovenox. Code(s): S72.002A - Fracture of unspecified part of neck of left femur, initial encounter for closed fracture (2) Hypokalemia Current Visit: Yes Status: Acute Comment: Potassium is better continue replacement Code(s): E87.6 - Hypokalemia (3) Atrial fibrillation Current Visit: Yes Status: Acute Comment: Her rate is uncontrolled per my discussion with the family yesterday they don't want IV medications like Cardizem. They accepted adjusting the metoprolol. Her rate still uncontrolled will give additional metoprolol dosage today. We'll switch her to metoprolol tartrate instead of the succinate as she is having problems swallowing. Code(s): I48.91 - Unspecified atrial fibrillation (4) Hypomagnesemia Current Visit: Yes Status: Acute Comment: She is on magnesium replacement Code(s): E83.42 - Hypomagnesemia (5) Hypertension Current Visit: Yes Status: Acute Comment: For her blood pressure she is on Norvasc, Hyzaar and metoprolol. I'll increase her metoprolol because of uncontrolled rate to 50 milligram twice a day and we'll cut back on the Hyzaar to 1 tablet at night. We'll watch her blood pressure will see if she needs to be on the high dosage of the Hyzaar but because we are increasing the metoprolol to cut back on the Hyzaar for now. Code(s): I10 - Essential (primary) hypertension (6) Vitamin B 12 deficiency Current Visit: Yes Status: Acute Comment: Her B12 is borderline will put her on some replacement. Code(s): E53.8 - Deficiency of other specified B group vitamins
--- NOTE | 2018-04-08 11:29 | OTI REPORT ---
Thank you for the referral of Stephanie Reeder. He was seen on 04/07/18 for an occupational therapy swallow evaluation. SUBJECTIVE: The patient is an 82-year-old female who fell and broke her left hip. Her family was present during the end of the session today. They reported that Stephanie has always had some dementia but was very independent with all of the basic activities of daily living such as dressing herself, being able to feed herself, and completing all of her transfers. Two weeks ago she fell and broke the right side of her ribs and ever since then she has been declining with some of her functions. Their main goals are for the patient's granddaughter to continue to care for her, to be able to complete one man stand pivot transfers, and to go home vs. a penitentiary. The patient was very minimal in her responses today. She did not speak in conversation but would sometimes say yes or no to conversation. PAST MEDICAL HISTORY: Past medical history can be found in the patient's medical record. OBJECTIVE FINDINGS: Pre-Swallow Assessment: Alertness and responsiveness: The patient was alert but not necessarily responsive. Reliability of responses: Her reliability of responses was questionable. Facial symmetry: The patient did demonstrate facial symmetry; however, she kept her mouth open the entire time, when not trying to swallow a bolus. Following directions: The patient was not able to follow 1-2 step directions. Alignment: She tends to lean to the left vs. the right and has difficulty keeping in neutral alignment. Cough: The patient's cough was weak. Nutrition and intake method: The patient typically is on a regular diet with thin liquids; however, nursing staff reported today that she coughed on thin liquid when eating her lunch and about turned blue. She was aspirating and coughing during the lunch hour. Secretions: The patient handles her secretions 90% of the time, but there was a little bit of drooling during some of the food intake today. Dentition: The patient does have dentures on the top and the bottom; however, they are loose and do not fit her very well. Posture: The patient's posture is poor and stiff. She has a kyphotic cervical/ thoracic spine and tends to keep her head tilted to the left. Tongue range of motion: Range of motion of the tongue is poor. Coordination: Coordination is poor. Head control: Head control is poor. Jaw mobility: Jaw mobility is fair to poor. Lip control: Lip control is fair. She does drool slightly. Sensation: Sensation was hard to assess as the patient does not give verbal feedback. Gag reflex: Her gag reflex was hypo-active. She does have some impaired elevation. General observations: The patient was sitting in chair upon the therapist's arrival. Again, she was not able to follow one step commands such as trying to repeat lateralization, sticking tongue out, or clicking tongue. Feeding Assessment: Automatic swallow is very impaired. She takes anywhere from 30 seconds to 1-2 minutes to try to swallow the bolus. Laryngeal elevation is slightly impaired as well when she does swallow the bolus. Today we started with thin water from a straw. She initially would not initiate swallowing from a straw. When the therapist got the smaller straw, she did initiate swallowing from that straw. Initially without food intake, the patient did well and did not demonstrate signs of aspiration. Only after some food intake did she cough on thin liquid. We then tried some nectar thickened liquid. The patient did well with one swallow but then also coughed on that after food intake. We then went to honey thickened liquid and the patient appeared to do well with this. The patient ate pudding, which went down very well. We then went to diced peaches; there were three small peaches in the spoonful. The patient tends to roll her food around; she has a lot of difficulty swallowing texture and initiating the swallow. This went on for approximately 5 minutes before the therapist had to take the peach out of her mouth. This was also observed with a non-crushable medication that her nurse gave her. The patient rolled this around several times with pudding as well as with honey thickened liquid intake. The patient would not swallow the pill. The therapist had to physically put the pill on the back of her tongue before she would swallow the pill. Nursing was going to ask Dr. Cheng if this could be changed to a crushable type of pill as she does do better with the meds being crushed. We did not assess a regular diet secondary to the patient having difficulty with mechanical soft foods and initiating swallow. We stuck with pureed foods and honey thickened liquid. ASSESSMENT: The patient is not able to self feed. She needed assistance during the entire evaluation today to feed self. She was 90 degrees up in chair. She did demonstrate some choking with the thin liquids. Her rate of swallow is very slow; it takes her 30 seconds to 1.5 minutes to initiate the swallow of a pureed food or honey thickened liquid one sip at a time. It is questionable whether this will be sufficient for adequate PO intake. RECOMMENDATIONS: 1. The patient's diet should be changed to pureed foods. 2. The patient should drink honey thickened liquids. 3. Medications need to be crushed and placed in a puree. 4. The patient should eat with trained staff or family only. 5. The patient should take one bite at a time and wait until the patient has swallowed one bolus at a time before taking another bite of food or swallow of honey thickened liquid. 6. Oral care should be taken after each PO intake. 7. Straws are okay. Make sure she just takes one bolus at a time and it need to be a thin straw. If she is not initiating with the straw, giving the patient a spoonful of liquid would be fine. 8. The patient should remain upright for [address] Cheng was informed of the results and recommendations. The patient's nurse was also educated on the results and recommendations and she also observed the swallow evaluation so she could carry on with the recommendations later on. SWALLOW GOALS: Patient will eat recommended diet without external signs of aspiration. Patient will be able to go to a mechanical soft and nectar thickened liquid diet at some point in time when she is more alert and responsive. Patient will be able to swallow boluses within 10-15 seconds. TREATMENT PLAN: Patient will follow above recommendations. If there is a change in status with her swallow and alertness levels, we may need to reassess her swallow recommendations. INITIAL TREATMENT: Treatment today consisted of the swallow evaluation activities only. DENNIS
--- NOTE | 2018-04-08 11:39 | OTI REPORT ---
Thank you for the referral of Stephanie Reeder. She was seen on 04/07/18 for an occupational therapy inpatient evaluation status post left hip fracture. SUBJECTIVE: The patient is an 82-year-old female who is being seen secondary to falling and breaking her left hip. The patient's family reports that Stephanie has always had some dementia but was very independent with all of the basic activities of daily living such as dressing herself, being able to feed herself, and completing all of her transfers. Two weeks ago she fell and broke the right side of her ribs and ever since then she has been declining with some of her functions. Their main goals are for the patient's granddaughter to continue to care for her, to be able to complete one man stand pivot transfers, and to go home vs. a assisted. The patient was very minimal in her responses today. She did not speak in conversation but would sometimes say yes or no to conversation. PAST MEDICAL HISTORY: Past medical history can be found in the patient's medical record. OBJECTIVE FINDINGS: Range of motion: The patient was not able to follow one step commands for upper extremity range of motion. The patient has passive bilateral upper extremity range of motion to 110 degrees bilaterally. Transfers: The patient was able to follow one step commands of placing hands on chair to complete a functional stand pivot transfer. The patient required max assist x2 and had difficulty moving her feet with chair to bed transfer. Bed mobility: Once in bed, the patient required max assist x2 to go from sit to supine. The patient required max assist for bed mobility. We tried working on bridging and the patient was not able to understand what was going on with that. ASSESSMENT: The patient's family would like her to get back to doing stand pivot transfers with one person so that they can take her home to care for her. They do have a high rise toilet seat, a shower chair, a transport chair, and a hospital bed for the patient at home at this point in time. Problem List: Decreased alertness levels Decreased ability to follow directions Decreased ability to perform ADLs including dressing activities and hygiene activities Decreased activity tolerance Short-Term Goals: To be met by discharge from inpatient: Patient will be able to complete simple hygiene activities while sitting in chair with min assist after set up. Patient will be able to dress upper extremities with mod assist and lower extremities with mod assist. Patient will be able to stand x3 minutes to increase activity tolerance to improve her ability for stand pivot transfers. Long-Term Goals: To be met following discharge from inpatient: Patient will be able to return home, being able to complete stand pivot transfers with mod assist to increase independence for family assistance at home. TREATMENT PLAN: Patient will be seen B.I.D during the week and one time per day over the weekend as an inpatient to address the above goals and objectives. INITIAL TREATMENT: Treatment today consisted of the evaluation followed by the patient completing a stand pivot transfer. The patient did agree to stand up and did agree to place hands on chair. Once standing, she had a lot of difficulty trying to complete the stand pivot transfer. The patient's family was educated on transfers. They would like her to get to min to mod assist with a one person transfer so that they can take her home. DNENIS
--- NOTE | 2018-04-08 14:45 | PT AM DAY ---
Diagnosis : Left Hip Fracture AM - Physical Therapy S: Nursing reports that the patient continues to be non verbal but requests that she be transferred into her chair for lunch. O: Today's therapy consisted of the following functional activities: The patient was dependent with supine to edge of bed transfer x2 regardless of tactile and verbal cues. The patient was able to sit edge of bed unsupported for approximately 90 seconds before requiring assistance to prevent loss of balance. She required max assist x1 for a stand pivot transfer but was able to perform lower extremity initiation. The patient is to be partial weight-bearing ; however, the patient is not able to cognitively comprehend this. Once seated in the chair, the therapist attempted to have the patient perform long arc quads or any active lower extremity range of motion activities; however, she was unable to perform these activities. A: The patient's biggest limitation at this time is going to be her cognitive ability. P: Continue seeing patient BID during the week and one time per day over the weekend with focus on sitting upright and partial weight-bearing. DENNIS
--- NOTE | 2018-04-08 15:18 | OT.PROG ---
Progress Note Progress Note: S: pt was non verbal today. She was accompanied by family who reported before accident she was functional and verbal. O: pt was seen in her room and needed x2 dependent transfer x`1 man. She also needed max A with bed mobility. She was left in a supine position for comfort. A: pt was unable to complete simple hygiene task at sink. Transfers still difficult but will continue to increase her ability to transfer more INd. P: continue per POC.
--- NOTE | 2018-04-08 15:19 | PT.PROG ---
Progress Note Progress Note: S. Patient was non verbal however was willing to perform standing this afternoon. O. Patient performed sit to stand transfer x 3 and stood x 1 minute each time she stood as well as weight shifts. A. Patient required mod assist x 2 for sit to stand transfers and standing balance. Patient requires frequent cues and assist to stand. She would continue to benefit from skilled therapy to increase strength, mobility and endurance at this time. P. Continue POC.
[2018-04-08] MEDS: Metoprolol TARTRATE Tab 50 MG TAB PO SCH (20:36)
[2018-04-08] MEDS ORDERED: LOSARTAN/HYDROCHLOROTHIAZIDE 50 MG/12.5 MG TABLET PO SCH (21:00)
[2018-04-08] MEDS ORDERED: METOPROLOL SUCCINATE 50 MG SR 24H TABLET PO SCH (21:00)
[2018-04-09] MEDS: HYDROcodone-APAP 5 MG -325 MG TABLET PO PRN (06:49)
[2018-04-09 09:08] LABS: BASOPHILS # (AUTO) 0 10*3/UL; BASOPHILS % (AUTO) 0 % (0-1); EOSINOPHILS # (AUTO) 0 10*3/UL; EOSINOPHILS % (AUTO) 0 % (0-8); Hematocrit [HCT] 28.3 % (37.0-47.0); Hemoglobin [HGB] 9.2 g/dL (12.0-16.0); LYMPHOCYTES # (AUTO) 0.59 10*3/uL; MEAN CORPUSCULAR HEMOGLOBIN 32.1 PG (27-31); MEAN CORPUSCULAR HGB CONC 32.5 g/dL (33-37); MEAN CORPUSCULAR VOLUME 98.6 FL (81-99); MEAN PLATELET VOLUME 10.4 FL (7.4-12.2); MONOCYTES # (AUTO) 0.35 10*3/UL (0.3-0.8); MONOCYTES % (AUTO) 7.6 % (5-15); NEUTROPHILS # (AUTO) 3.67 10*3/UL; NEUTROPHILS % (AUTO) 79.3 % (50-80); RED BLOOD COUNT 2.87 10^6/uL (4.20-5.40)
[2018-04-09 09:26] LABS: BLOOD UREA NITROGEN 29 mg/dL (7-22); BUN/CREATININE RATIO 48.33 (6-20)
[2018-04-09] MEDS ORDERED: POLYETHYLENE GLYCOL 3350 17 GM POWDER PO PRN (09:30)
--- NOTE | 2018-04-09 09:30 | PDOC(PROG) ---
Date of Service: 04/09/18 Time of Service: 08:30 Interval History: Subjective Patient was sitting in bed does not appear in distress. Not saying much. Moving her extremities spontaneously. Does not follow commands. Objective : Data - Labs CBC and BMP: 04/09/18 08:45 04/09/18 08:45 Objective : Exam - General General Appearance: No Acute Distress, Thin - Head Head Exam: Normal Inspection - Eye Eye Exam: Normal Appearance - ENT ENT Exam: Normal Exam - Neck Neck Exam: Normal Inspection - Respiratory Respiratory Exam: Clear to Auscultation - Bilaterally - Cardiovascular Cardiovascular Exam: Irregular Rhythm, Tachycardia - GI/Abdominal GI/Abdominal Exam: Normal Bowel Sounds, Non Tender, Non Distended, Soft, No Organomegaly - Rectal Rectal Exam: Deferred - External Exam: Deferred - Extremities Extremities Exam: Normal Inspection - Back Back Exam: Normal Inspection - Neurological Additional Neurological Exam Details: Awake, not saying much. Doesn't follow commands well. Does not appear in distress. Assessment and Plan - Patient Problems (1) Hip fracture, left Current Visit: Yes Status: Acute Comment: Continue PT and OT, continue Lovenox for DVT prophylaxis. Per my discussion with the demand planner referral was sent to the [facility] in [place] so we will wait to hear from them. Code(s): S72.002A - Fracture of unspecified part of neck of left femur, initial encounter for closed fracture (2) Hypokalemia Current Visit: Yes Status: Acute Comment: This was replaced Code(s): E87.6 - Hypokalemia (3) Atrial fibrillation Current Visit: Yes Status: Acute Comment: Her heart is the still uncontrolled but better than it was. We may give additional dosage during the day will see what's her heart rate Code(s): I48.91 - Unspecified atrial fibrillation (4) Hypertension Current Visit: Yes Status: Acute Comment: Continue same medications Code(s): I10 - Essential (primary) hypertension (5) Vitamin B 12 deficiency Current Visit: Yes Status: Acute Comment: Continue B12 Code(s): E53.8 - Deficiency of other specified B group vitamins
[2018-04-09] MEDS: OMEPRAZOLE 40 MG CAPSULE PO SCH ×2 (09:37→21:10)
[2018-04-09] MEDS: Sucralfate Tab 1 GM TAB PO SCH ×2 (09:37→21:10)
[2018-04-09] MEDS: ENOXAPARIN SODIUM 30 MG/0.3 ML SYRINGE SUBCUT SCH (09:37)
[2018-04-09] MEDS: Potassium Chloride 20mEq Packet PO SCH ×2 (09:37→21:10)
[2018-04-09] MEDS: CYANOCOBALAMIN (VITAMIN B-12) 1,000 MCG TABLET.ER PO SCH (09:37)
[2018-04-09] MEDS: Multivitamin Tab 1 TAB PO SCH (09:38)
[2018-04-09] MEDS: Metoprolol TARTRATE Tab 50 MG TAB PO SCH ×2 (09:38→21:08)
[2018-04-09 09:39] LABS: PLATELET MORPHOLOGY COMMENT NORMAL MORPHOLOGY (NORM); WBC MORPHOLOGY COMMENT NORMAL MORPHOLOGY (NORM)
[2018-04-09 09:40] LABS: RBC MORPHOLOGY COMMENT SEE COMMENTS (NORM)
[2018-04-09] MEDS: MAGNESIUM OXIDE 400 MG TABLET PO SCH (09:40)
--- NOTE | 2018-04-09 10:15 | OT.PROG ---
Progress Note Progress Note: S: pt stated that she was doing okay. O: tx consisted of sitting at EOB to take medication. pt needed to use bed rail to stability and wavered from MOD to MAX A to remain sitting at EOB. pt needed MOD VCs to keep her eyes open and remain seated. A: pt started to become more alert with movement from PT and OT today. P: continue POC
--- NOTE | 2018-04-09 11:28 | PT.PROG ---
Progress Note Progress Note: S. Patient agreed to transfer to the shower chair. O. Patient performed supine to sit transfer then transfer to the shower chair and was left with Nursing. A. Patient required max assist x 2 with bed mobility and dependent transfer was performed to get her to the shower chair. Patient continues to be very weak and would continue to benefit from skilled therapy to increase strength, mobility and endurance. P. Continue POC.
[2018-04-09] MEDS: DOCUSATE 100 MG CAPSULE PO SCH (14:00)
--- NOTE | 2018-04-09 14:51 | ORTHO.PROG ---
Last Taken Vital Signs: Vital Signs - Last Taken Temperature 97.8 F 04/09/18 11:11 Pulse Rate 104 H 04/09/18 11:11 Respiratory Rate 16 04/09/18 11:11 Blood Pressure 111/77 04/09/18 11:11 Pulse Ox 97 04/09/18 11:11 Subjective: Patient sitting up in chair. Not real conversant. I asked her to move her feet and she did not respond. Objective: Vital signs stable patient afebrile. Left hip dressing clean and dry and intact. Will change that out in the morning. Assessment: Impression: Doing fair postop day 4 from left hip fracture. Patient's mental cognition is not great. Plan: Plan: Is to continue transfers from bed to chair and possibly back to the care center in [place] this week.
--- NOTE | 2018-04-09 16:00 | PT.PROG ---
Progress Note Progress Note: S. Patient continues to be non verbal. O. Patient performed sit to stand transfer x 3 and stood x 1 minute each time she stood. Patient was left in chair with alarm and call light. A. Patient continues to be very weak and requires mod assist x2 for transfers and standing. Patient would continue to benefit from skilled therapy to increase strength, endurance and mobility. P. Continue POC.
--- NOTE | 2018-04-09 16:04 | OT.PROG ---
Progress Note Progress Note: Pt was not appropriate for OT this afternoon.
[2018-04-09] MEDS: LOSARTAN 50 MG TABLET PO SCH (21:08)
[2018-04-10] MEDS: ACETAMINOPHEN 325 MG TABLET PO PRN (04:33)
--- NOTE | 2018-04-10 08:09 | PDOC(PROG) ---
Date of Service: 04/10/18 Time of Service: 08:10 Interval History: Subjective She was laying in bed does not appear in distress. She seem to be more alert today compared to yesterday. Still doesn't say much. Objective : Data - Labs CBC and BMP: 04/09/18 08:45 04/09/18 08:45 Objective : Exam - General General Appearance: No Acute Distress, Cooperative, Thin - Head Head Exam: Normal Inspection - Eye Eye Exam: Normal Appearance - ENT ENT Exam: Normal Exam - Neck Neck Exam: Normal Inspection - Respiratory Respiratory Exam: Clear to Auscultation - Bilaterally - Cardiovascular Cardiovascular Exam: Irregular Rhythm, Tachycardia - GI/Abdominal GI/Abdominal Exam: Normal Bowel Sounds, Non Tender, Non Distended, Soft, No Organomegaly - Rectal Rectal Exam: Deferred - External Exam: Deferred Exam: Deferred - Extremities Additional Extremities Exam Details: No edema noted - Back Back Exam: Normal Inspection - Neurological Additional Neurological Exam Details: More alert. Follows some of the commands. Spontaneous movements in limbs noted. - Psychiatric Psychiatric Exam: Flat Affect Assessment and Plan - Patient Problems (1) Hip fracture, left Current Visit: Yes Status: Acute Comment: Continue PT and OT. I think will DC the hydrocodone just use Tylenol for her pain. Code(s): S72.002A - Fracture of unspecified part of neck of left femur, initial encounter for closed fracture (2) Hypokalemia Current Visit: Yes Status: Acute Comment: Continue potassium replacement Code(s): E87.6 - Hypokalemia (3) Atrial fibrillation Current Visit: Yes Status: Acute Comment: Rate still not controlled I'll increase the metoprolol again today. Code(s): I48.91 - Unspecified atrial fibrillation (4) Hypertension Current Visit: Yes Status: Acute Comment: Same med Code(s): I10 - Essential (primary) hypertension (5) Vitamin B 12 deficiency Current Visit: Yes Status: Acute Comment: She is on B12 Code(s): E53.8 - Deficiency of other specified B group vitamins
--- NOTE | 2018-04-10 08:25 | ORTHO.PROG ---
Last Taken Vital Signs: Vital Signs - Last Taken Temperature 97.2 F 04/10/18 07:57 Pulse Rate 119 H 04/10/18 07:57 Respiratory Rate 22 04/10/18 07:57 Blood Pressure 129/97 04/10/18 07:57 Pulse Ox 97 04/10/18 07:57 Subjective: Patient lying in bed awake. Maybe a little more with it today. Objective: Vital signs stable patient afebrile. Left hip incision clean and dry. Took the suction dressing off. Assessment: Impression: Stable postop day 5 from fixation left hip fracture Plan: Plan: Hopefully patient will be going back to [place] this week care center. Stitches need to be removed in about a week. I will try to see her in [place] in a couple of weeks.
[2018-04-10] MEDS: CYANOCOBALAMIN (VITAMIN B-12) 1,000 MCG TABLET.ER PO SCH (08:28)
[2018-04-10] MEDS: ENOXAPARIN SODIUM 30 MG/0.3 ML SYRINGE SUBCUT SCH (08:28)
[2018-04-10] MEDS: Metoprolol TARTRATE Tab 50 MG TAB PO SCH ×2 (08:30→21:33)
[2018-04-10] MEDS: OMEPRAZOLE 40 MG CAPSULE PO SCH ×2 (08:30→21:32)
[2018-04-10] MEDS: Sucralfate Tab 1 GM TAB PO SCH ×2 (08:30→21:32)
[2018-04-10] MEDS: MAGNESIUM OXIDE 400 MG TABLET PO SCH (08:31)
[2018-04-10] MEDS: Multivitamin Tab 1 TAB PO SCH (08:31)
[2018-04-10] MEDS: Potassium Chloride 20mEq Packet PO SCH ×2 (08:32→21:32)
--- NOTE | 2018-04-10 09:46 | OT.PROG ---
Progress Note Progress Note: S: pt stated that she was doing okay. O:pt completed ADL tasks of washing her face and neck and brushing her hair with [place] assist to start tasks but was able to finish tasks independently. pt participated in AAROM stretching of UEs in all planes of motion. A: pt needed simple direct verbal commands along with tactile cueing of STANDING [place] assist to start tasks. P: continue POC
--- NOTE | 2018-04-10 15:39 | OT PM DAY ---
Diagnosis : Left Hip Fracture PM - Occupational Therapy S: TELEPHONE CLERKS SUPERVISOR reported that the patient was more alert today. The occupational therapist is assessing her ability to start eating by herself as her granddaughter had reported that prior to all of these falls, she was able to feed herself and complete simple ADLs independently. O: The patient was sitting in chair upon the therapist's arrival. She was much more alert than on Sunday when we did the swallow evaluation. She was able to hold her head upright, she was turning her head to the left and the right. The patient still does not say more than one or two words at a time, but stated that she was hungry. Today we presented the patient with soup, carrots, and ice cream. She also had two options of honey thickened drinks. The patient started with the pureed food. She had good laryngeal elevation today with her swallow. We had her drink a few sips of the honey thickened liquid. She was able to bring the cup to her mouth with a verbal cue. This went well; there was no coughing or choking. The therapist wanted to assess her ability with nectar thickened liquid. The patient did well. She had good laryngeal elevation and no external signs of aspiration. We went through several bites of food. It does take longer for the patient to initiate the swallow. Sometimes she needs min assist to start bringing food to mouth or a cue to eat food and then swallow. The patient was able to eat approximately 25 % of the entire meal that was put in front of her and she was able to feed herself 75% of the time. A: The patient still requires verbal cues in order to initiate eating. Today she was able to bring a spoon to her mouth with 75% of the meal that she ate. She was able to be reduced to nectar thickened liquid as she did drink this several times throughout the meal and after eating pureed foods and there were no external signs of aspiration with the nectar thickened liquid. RECOMMENDATIONS: 1. Continue to have patient sit upright for all meals. 2. The patient is to go from honey thickened to nectar thickened liquid. This was discussed with the patient's nurse Jo and we did change that. 3. If the patient's alertness levels continue to improve, OT may try a mechanical soft diet tomorrow. P: Continue seeing patient BID during the week and one time per day over the weekend until discharge. VANDANAD
--- NOTE | 2018-04-10 16:03 | PT.PROG ---
Progress Note Progress Note: S. Patient agreed to sit up in her chair. O. Patient transferred from supine to seated at the edge of bed then stood and pivot transferred to the chair and stood x 5 minutes. Patient was left in chair with alarm and call light. A. Patient tolerated therapy fair, she was able to take a couple steps to the chair with max assist x 2. She continues to be very uncommunicative and weak, she would continue to benefit from skilled therapy to increase strength and mobility at this time. P. Continue POC.
--- NOTE | 2018-04-10 16:06 | PT.PROG ---
Progress Note Progress Note: S. Patient continues agreed to stand this afternoon, she denied having any pain at this time. O. Patient performed sit to stand transfer x 3 and stood x 1 minute each time she stood. Patient was left in chair with alarm and call light. A. Patient continues to be very weak and requires mod assist x2 for transfers and standing. Patient would continue to benefit from skilled therapy to increase strength, endurance and mobility. P. Continue POC.
[2018-04-10] MEDS: LOSARTAN 50 MG TABLET PO SCH (21:32)
[2018-04-11 05:56] LABS: BLOOD UREA NITROGEN 28 mg/dL (7-22)
[2018-04-11] MEDS: MAGNESIUM OXIDE 400 MG TABLET PO SCH (08:21)
[2018-04-11] MEDS: Metoprolol TARTRATE Tab 50 MG TAB PO SCH ×2 (08:55→20:06)
[2018-04-11] MEDS: CYANOCOBALAMIN (VITAMIN B-12) 1,000 MCG TABLET.ER PO SCH (08:56)
[2018-04-11] MEDS: Multivitamin Tab 1 TAB PO SCH (08:56)
[2018-04-11] MEDS: OMEPRAZOLE 40 MG CAPSULE PO SCH ×2 (08:56→20:08)
[2018-04-11] MEDS: Sucralfate Tab 1 GM TAB PO SCH ×2 (08:56→20:04)
[2018-04-11] MEDS: Potassium Chloride 20mEq Packet PO SCH ×2 (09:46→20:08)
[2018-04-11] MEDS: ENOXAPARIN SODIUM 30 MG/0.3 ML SYRINGE SUBCUT SCH (09:48)
--- NOTE | 2018-04-11 13:18 | OT.PROG ---
Progress Note Progress Note: S: pt stated she was hungry. O: tx consisted of ADL tasks of brushing her hair with MOD VCs and placement of caldwell into her hands. pt was able to start activity after brush was placed in hands. pt participated in ADL tasks of feeding self. pt needed MAX Vcs to complete feeding self 50% of the time independently. A: pt has improved in vocalizing wants and needs and completion of ADL tasks. P: continue POC
--- NOTE | 2018-04-11 14:18 | PDOC(PROG) ---
Interval History: Doing well no complaints very cheerful nose her name coherent Objective : Data - Labs CBC and BMP: 04/09/18 08:45 04/11/18 04:20 Objective : Exam - Respiratory Respiratory Exam: Clear to Auscultation - Bilaterally, Breathing Non Labored, Normal To Percussion, Normal to Percussion and Palpation - Cardiovascular Cardiovascular Exam: RRR, No Murmur, No Clicks, No Gallops, No Rubs, PMI Non- Displaced Assessment and Plan - Patient Problems (1) Hip fracture, left Current Visit: Yes Status: Acute Comment: Patient is doing well PT OT needs to see Dr. Hall in the 1 week if she goes to [facility] Dr. Hall will see her there social work job titles still working on placement Code(s): S72.002A - Fracture of unspecified part of neck of left femur, initial encounter for closed fracture (2) Hypokalemia Current Visit: Yes Status: Acute Comment: Replace Code(s): E87.6 - Hypokalemia (3) Atrial fibrillation Current Visit: Yes Status: Acute Comment: Increased beta rudy family does not want any and IV drips just wants to treated with by mouth beta rudy no anticoagulation wanted and as well scoring consistent with her past Code(s): I48.91 - Unspecified atrial fibrillation (4) Hypertension Current Visit: Yes Status: Acute Code(s): I10 - Essential (primary) hypertension (5) Vitamin B 12 deficiency Current Visit: Yes Status: Acute Code(s): E53.8 - Deficiency of other specified B group vitamins
--- NOTE | 2018-04-11 14:44 | ORTHO.PROG ---
Last Taken Vital Signs: Vital Signs - Last Taken Temperature 97.7 F 04/11/18 11:28 Pulse Rate 85 04/11/18 11:28 Respiratory Rate 20 04/11/18 11:28 Blood Pressure 125/77 04/11/18 11:28 Pulse Ox 97 04/11/18 11:28 Subjective: Patient sleeping. Minimally responsive today when I was there. Objective: Vital signs stable patient afebrile. Left hip dressing clean and dry. Thigh is supple. No new labs to report. Assessment: Impression: Doing fairly well postop day 6 from fixation left hip Plan: Plan: Is for her to be transferred to [place] to the [facility] facility tomorrow. I will see her there are a couple weeks. Sutures are to be removed in 1 week
--- NOTE | 2018-04-11 15:09 | OT.PROG ---
Progress Note Progress Note: S: pt stated that she was tired. O: tx consisted of AROM of wrist flexion and extension, AAROM of elbow and shoulder in all planes of motion. A: attempted to complete hair brushing or face washing and movement of trunk or LE but pt did not respond to VCs. P: continue POC
--- NOTE | 2018-04-11 15:55 | PT.PROG ---
Progress Note Progress Note: S. Patient agreed to stand this morning. O. Patient stood from the chair and stood x 5 minutes while nursing changed her brief. Patient was left in chair with alarm and call light. A. Patient was very fatigued during standing. Patient continues to be weak and require mod assist x 2 for sit to stand transfers. Patient would continue to benefit from skilled therapy to increase strength and mobility. P. Continue POC.
--- NOTE | 2018-04-11 16:00 | PT.PROG ---
Progress Note Progress Note: S. Patient agreed to stand this afternoon. O. Patient stood from the chair and stood 2 x2 minutes then stood x 5 minutes while nursing changed her brief. Patient was left in chair with alarm and call light. A. Patient was very fatigued during standing. Patient continues to be weak and require mod assist x 2 for sit to stand transfers. Patient would continue to benefit from skilled therapy to increase strength and mobility. P. Continue POC.
--- NOTE | 2018-04-11 18:26 | DCSUMMARY ---
Hospitalization Summary Hospital Course: Final Discharge Diagnosis: Current Visit Problems Problem Status Onset Code Hip fracture, left Acute S72.002A Hypokalemia Acute E87.6 Atrial fibrillation Acute I48.91 History of chronic lymphocytic leukemia Acute Z85.6 Hypomagnesemia Acute E83.42 Hypertension Acute I10 Vitamin B 12 deficiency Acute E53.8 Diagnostic Data, Laboratory Data, and Procedures of Signifigance: History and Physical pertinent to Admission: Past Medical History Medical History: CLL, atrial fibrillation rate controlled not on anticoagulation as per patient's wishes and choice Tobacco Use: Never Smoker In the Past 12 Months, Have Used or Abuse Any of the Following Substance: None Course of Hospitalization: Is a very nice 82-year-old female who is from [place] she went to the ER there and the because she had a fall at home which the end it in a fracture of her hip was transferred here via ambulance and Dr. Sd Hall repaired R hip last Sunday she did pretty well postop doing physical therapy. She has a history of CLL which is well-known to the family and the patient but they opted for no treatment also she has atrial fibrillation and they opted for just the beta rudy but no anticoagulation. She did develop atrial fibrillation here in the hospital but only wanted to be treated with the beta rudy and not put on any drip. Still refusing anticoagulation. Her beta rudy was increased to 75 twice a day and her heart rate has been controlled today her new medications are Norvasc 10 mg by mouth daily I did prescribe her electronically 30 at [facility] pharmacy which is the preferred pharmacy in the computer also prescribed the Lopressor 75 twice a day #60 electronically by the same pharmacy On the date of discharge, the patient was examined: Gen.: Heart: [Regular rate and rhy Current Visit Problems Problem Status Onset Code Hip fracture, left Acute S72.002A Hypokalemia Acute E87.6 Atrial fibrillation Acute I48.91 History of chronic lymphocytic leukemia Acute Z85.6 Hypomagnesemia Acute E83.42 Hypertension Acute I10 Vitamin B 12 deficiency Acute E53.8 See my note from this morning for a physical exam Vitals reviewed and are listed below Vital Signs (24 hrs) Temp Pulse Resp BP Pulse Ox 04/11/18 16:27 97.8 F 80 18 131/83 97 04/11/18 11:28 97.7 F 85 20 125/77 97 04/11/18 07:08 98.1 F 110 H 20 133/92 96 04/11/18 07:00 110 H 04/11/18 05:00 98 F 105 H 20 122/94 94 04/11/18 00:18 93 20 133/89 97 04/10/18 21:00 98.4 F 93 24 129/73 96 Assessment and Plan: 1. As per discharge assessments above 2. Disposition: Swing bed admit was instructed to discharge the patient to home there were dried themselves and be readmitted at [facility] director social welfare and nursing 3. Condition on discharge, stable and improved. 4. Diet: regular diet 5. Activities: resume normal activities 6. Follow-Up: 1. [PCP] 2. 7. Medications at the Time of Discharge: Home Medications Home Medications 3 Medication Instructions Recorded Confirmed Type Celecoxib 100 mg PO BEDTIME 04/04/18 04/04/18 History Losartan/Hydrochlorothiazide 1 tab PO BEDTIME 04/04/18 04/04/18 History [Losartan-Hctz 100-25 mg Tab] Omeprazole 40 mg PO BID 04/04/18 04/04/18 History Sucralfate 1 gm PO BID 04/04/18 04/04/18 History Amlodipine Besylate [Norvasc] 10 mg PO DAILY #30 tab 04/11/18 Rx Enoxaparin Inj [Lovenox Inj] 30 mg SUBCUT DAILY syringe 04/11/18 Rx Metoprolol Tartrate Tab 75 mg PO BID #60 tab 04/11/18 Rx [Lopressor Tab] 8. Time, care, counseling and coordination of care for this discharge is greater than 30 minutes. Exam - Vitals Vital Signs: Vital Signs Temperature 97.8 F Temperature Source Temporal Artery Scan Pulse Rate [Pulse Oximeter] 80 Pulse Rate [Bilateral Dorsalis 90 Pedis] Pulse Rate [Apical] 130 Pulse Rate 70 Respiratory Rate 18 Blood Pressure [Right Arm] 131/83 Blood Pressure 172/91 Pulse Ox 97 Oxygen Flow Rate .5 Oxygen Delivery Method Room Air Height 5 ft 3 in Weight 102 lb 1.6 oz Patient Problems - Patient Problem List (1) Hip fracture, left Current Visit: Yes Status: Acute Code(s): S72.002A - Fracture of unspecified part of neck of left femur, initial encounter for closed fracture Category: Medical (2) Hypokalemia Current Visit: Yes Status: Acute Code(s): E87.6 - Hypokalemia Category: Medical (3) Atrial fibrillation Current Visit: Yes Status: Acute Code(s): I48.91 - Unspecified atrial fibrillation Category: Medical (4) Hypertension Current Visit: Yes Status: Acute Code(s): I10 - Essential (primary) hypertension Category: Medical (5) Vitamin B 12 deficiency Current Visit: Yes Status: Acute Code(s): E53.8 - Deficiency of other specified B group vitamins Category: Medical
[2018-04-11] MEDS: ACETAMINOPHEN 325 MG TABLET PO PRN (20:04)
[2018-04-11] MEDS: LOSARTAN 50 MG TABLET PO SCH (20:07)
[2018-04-12] MEDS: ACETAMINOPHEN 325 MG TABLET PO PRN (01:11)
[2018-04-12 07:17] VITALS: BP 133/79; RESP 16; TEMP 97.2; O2SAT 98
== END 2018-04-12 07:48 | disposition short-term general hospital (02) | DRG 482 ==
LOC: MED/SURG 16:11 → OPS 04-05 12:14 → MED/SURG 04-05 16:31 → ICU 04-07 10:49
PROVIDERS: ADMIT Internal Medicine; ATTEND Internal Medicine